=== PATIENT | female | born 1975 | race Caucasian/White ===

== ENCOUNTER 2017-04-12 23:05 | Emergency (ER) | payer OTHER ==
[~2017-04-12 23:05] MED LIST: ALBUTEROL17 GM INH; BACTRIM DS TABL1 TA1 PO; BENZONATATE PO; FLEXERIL10 MG PO; HYDROCODON-ACE1 EAC9 PO; LEVAQUIN PO; NEURONTIN300 MG PO; NEURONTIN600 MG PO; NO MEDICATIONS; PREDNISONE PO; PRILOSEC20 MG PO; RONDEC SYRUP PO; TUSSIONEX PENN473 ML PO; VOLTAREN50 MG PO; VOLTAREN75 MG PO; ZITHROMAX PO; ZYRTEC PO
[2017-04-12] MEDS ORDERED: KLONOPIN (23:24)
== END 2017-04-13 02:02 | disposition home or self-care (01) ==
LOC: SED 23:05
DX: T63.301A Toxic effect of unspecified spider venom, accidental (unintentional), initial encounter (principal); F17.200 Nicotine dependence, unspecified, uncomplicated; Z23 Encounter for immunization
CPT/HCPCS: 90471; 90715; 99283

== ENCOUNTER 2017-04-21 22:32 | Emergency (ER) | payer OTHER ==
[~2017-04-21 22:32] MED LIST changes: +KLONOPIN
== END 2017-04-22 00:50 | disposition home or self-care (01) ==
LOC: SED 22:32
DX: T42.4X1A Poisoning by benzodiazepines, accidental (unintentional), initial encounter (principal); F17.200 Nicotine dependence, unspecified, uncomplicated
CPT/HCPCS: 99282

== ENCOUNTER 2017-07-17 16:59 | Emergency (ER) | payer OTHER | END 2017-07-17 18:45 | disposition left against medical advice (07) | LOC: CED 16:59 | DX: T40.1X1A Poisoning by heroin, accidental (unintentional), initial encounter (principal); Z98.51 Tubal ligation status | CPT/HCPCS: 99284 ==